=== PATIENT | female | born 1985 | race Caucasian/White ===

== ENCOUNTER → 2017-01-02 | Outpatient (CLI) | payer SELFPAY ==
--- NOTE | 2017-01-02 15:01 | RADIOLOGY REPORT (SQ) ---
EXAM DESCRIPTION: U/S [id number] TRNABD 1GES W/ODOP COMPLETED DATE/TIME: 01/02/2017 2:03 pm REASON FOR STUDY: ENCOUNTER FOR SUPERVISION OF OTHER NORMAL (Z34.81) FIRST TRIMESTE Z34.81 ENCOUNTER FOR SUPRVSN OF NORMAL , FIRST TRIM COMPARISON: None. TECHNIQUE: Transabdominal static and realtime grayscale images acquired of the pelvis. Additional se lected spectral and color Doppler images recorded. All images stored on PACs. bHCG: Not applicable. LIMITATIONS: None. FINDINGS: FETUS: Living intrauterine . EGA: 9 weeks 5 days NEIDA: 08/02/2017 FHR: 171 beats per minute. SUBCHORIONIC BLEED: No SIZE OF BLEED: Not applicable. UTERUS: 11.2 x 7.1 x 6.7 cm. No masses or anomalies. CERVICAL LENGTH: 4.2 cm. Closed. RIGHT ADNEXA: Right ovary measures 2.9 x 3.1 x 3.7 cm. Normal vascular flow. There is a 2.3 x 2.3 x 2.3 cm cyst. No adnexal free fluid. No adnexal masses. LEFT ADNEXA: Left ovary not seen. No adnexal free fluid. No adnexal masses. FREE FLUID: None. OTHER: No other significant finding. IMPRESSION: LIVING INTRAUTERINE . EGA 9 weeks 5 days. Trimester of : First - 0 to 13 weeks. TECHNICAL DOCUMENTATION: JOB ID: [id number] [employer]- All Rights Reserved
== END ==
LOC: RAD 12:53
PROVIDERS: ATTEND Nurse Practitioner Women's Health
DX: Z34.81 Encounter for supervision of other normal pregnancy, first trimester (principal)
CPT/HCPCS: 76801

== ENCOUNTER → 2017-03-14 | Outpatient (CLI) | payer SELFPAY ==
--- NOTE | 2017-03-14 17:01 | RADIOLOGY REPORT (SQ) ---
EXAM DESCRIPTION: U/S OB 14+ TRNABD 1GES W/O DOP COMPLETED DATE/TIME: 03/14/2017 4:40 pm REASON FOR STUDY: ENCOUNTER FOR SUPERVISION OF OTHER NORMAL , FIRST TRIMESTER Z34.82 ENCOU NTER FOR SUPRVSN OF NORMAL , SECOND TRI COMPARISON: 01/02/2017 TECHNIQUE: Static and Dynamic grayscale imaging performed of gravid uterus using transabdominal appr oach. Additional selected color Doppler and spectral images recorded. All stored on PACS. LIMITATIONS: None. FINDINGS: EGA: 20 weeks 1 day. NEIDA: 07/31/2017 ISRRAEL: 4.3 cm. Estimated weight: 331 g PLACENTA: Posterior in location. Grade 1 PRESENTATION: Variable. ANATOMY: HEART RATE: 153 beats per minute. FOUR CHAMBER HEART: Not visualized. THREE VESSEL CORD: Yes. CORD INSERTION: Visualized. KIDNEYS AND BLADDER: Visualized. Appear normal. STOMACH: Visualized. Appears normal. SPINE: Normal as visualized. BRAIN AND LATERAL VENTRICLES: Visualized. Appear normal. OTHER: No other significant finding. MATERNAL ADNEXA: Maternal ovaries not visualized. CERVICAL LENGTH: Not visualized. OTHER: No other significant finding. IMPRESSION: LIVING INTRAUTERINE . ESTIMATED GESTATIONAL AGE 20 WEEKS 1 DAY. NO VISUALIZED ANOMALIES. Trimester of : Second trimester - 13 weeks 1 day to 27 weeks 6 days. TECHNICAL DOCUMENTATION: JOB ID: [id number] [employer]- All Rights Reserved
== END ==
LOC: RAD 14:31
PROVIDERS: ATTEND Nurse Practitioner Women's Health
DX: Z34.82 Encounter for supervision of other normal pregnancy, second trimester (principal)
CPT/HCPCS: 76805

== ENCOUNTER → 2017-05-10 | Outpatient (CLI) | payer SELFPAY ==
--- NOTE | 2017-05-10 16:29 | RADIOLOGY REPORT (SQ) ---
EXAM DESCRIPTION: U/S OB 14+ TRNABD 1GES W/O DOP COMPLETED DATE/TIME: 05/10/2017 3:57 pm REASON FOR STUDY: Z34.83 ENCOUNTER FOR SUPRVSN OF NORMAL , THIRD TRIMESTER Z34.83 ENCOUNTE R FOR SUPRVSN OF NORMAL , THIRD TRIM COMPARISON: 03/14/2017. TECHNIQUE: Static and Dynamic grayscale imaging performed of gravid uterus using transabdominal appr oac. Additional selected color Doppler and spectral images recorded. All stored on PACS. LIMITATIONS: Limited visualization of the anatomy due to movement. FINDINGS: EGA: 27 week 1 day. NEIDA: 08/08/2017. EFW: 1030 g. grams PERCENTILE: 30%. ISRRAEL: Adequate amount. PLACENTA: Posterior. PRESENTATION: Transverse. ANATOMY: HEART RATE: 145 beats per minute. FOUR CHAMBER HEART: Visualized. THREE VESSEL CORD: Yes. CORD INSERTION: Visualized. KIDNEYS AND BLADDER: Not adequately visualized. STOMACH: Visualized. Appears normal. SPINE: Normal as visualized. BRAIN AND LATERAL VENTRICLES: Not adequately visualized. OTHER: No other significant finding. MATERNAL ADNEXA: Maternal ovaries not visualized. CERVICAL LENGTH: Not measured. Closed. OTHER: No other significant finding. IMPRESSION: LIVING INTRAUTERINE . ESTIMATED GESTATIONAL AGE 27 WEEK 1 DAY. NO VISUALIZED ANOMALIES. Trimester of : Second trimester - 13 weeks 1 day to 27 weeks 6 days. TECHNICAL DOCUMENTATION: JOB ID: [id number] [employer]- All Rights Reserved Reading location - IP/workstation name: [facility]-RR
== END ==
LOC: RAD 14:37
PROVIDERS: ATTEND Nurse Practitioner Women's Health
DX: Z34.82 Encounter for supervision of other normal pregnancy, second trimester (principal)
CPT/HCPCS: 76805

== ENCOUNTER 2017-07-19 15:24 | Outpatient (CLI) | payer MEDICAID | END 2017-07-19 16:13 | disposition home or self-care (01) | LOC: LC 15:24 | PROVIDERS: ATTEND Obstetrics & Gynecology | PROC: 4A1HXCZ Monitoring of Products of Conception, Cardiac Rate, External Approach (ICD-10-PCS; principal; 2017-07-19) | DX: Z34.93 Encounter for supervision of normal pregnancy, unspecified, third trimester (principal) | CPT/HCPCS: 59025 ==

== ENCOUNTER 2017-08-01 18:10 | Inpatient (IN) | payer MEDICAID ==
[2017-08-01 18:35] LABS: APPEARANCE,URINE CLEAR; BILIRUBIN,URINE NEGATIVE (NEGATIVE); COLOR,URINE YELLOW; GLUCOSE, URINE NEGATIVE (NEGATIVE); KETONES,URINE NEGATIVE (NEGATIVE); LEUKOCYTE ESTERASE,URINE NEGATIVE (NEGATIVE); NITRITE,URINE NEGATIVE (NEGATIVE); PROTEIN,URINE NEGATIVE (NEGATIVE); URINE SPECIFIC GRAVITY 1.008; UROBILINOGEN,URINE NEGATIVE mg/dL (<2.0)
[2017-08-01 18:47] LABS: ABSOLUTE EOSINOPHILS # (AUTO) 0.1 10^3/uL (0.0-0.6); ABSOLUTE LYMPHOCYTES (AUTO) 2.2 10^3/uL (0.5-4.7); ABSOLUTE NEUT (AUTO) 8.2 10^3/uL (1.7-8.2); BASOPHILS % (AUTO) 0.2 % (0-2); EOSINOPHILS % (AUTO) 0.7 % (0-6); HEMATOCRIT 34.5 % (36.0-47.0); HEMOGLOBIN 12.2 g/dL (12.0-15.5); MEAN CORPUSCULAR HEMOGLOBIN 33.7 pg (27.0-33.4); MEAN CORPUSCULAR HGB CONC 35.4 g/dL (32.0-36.0); MEAN CORPUSCULAR VOLUME 95 fl (80-97); MONOCYTES % (AUTO) 8.6 % (3-13); PLATELET COUNT 200 10^3/uL (150-450); RED BLOOD COUNT 3.64 10^6/uL (3.72-5.28); RED CELL DISTRIBUTION WIDTH 13.9 % (11.5-14.0); SEGMENTED NEUTROPHILS % (AUTO) 71.5 % (42-78); TOTAL CELLS COUNTED % (AUTO) 100 %; WHITE BLOOD COUNT 11.4 10^3/uL (4.0-10.5)
[2017-08-01 18:50] LABS: URINE AMPHETAMINES SCREEN NEGATIVE; URINE BARBITURATES SCREEN NEGATIVE; URINE BENZODIAZEPINES SCREEN NEGATIVE; URINE COCAINE SCREEN NEGATIVE; URINE MARIJUANA (THC) SCREEN NEGATIVE; URINE METHADONE SCREEN NEGATIVE; URINE PHENCYCLIDINE SCREEN NEGATIVE
[2017-08-01] MEDS ORDERED: DINOPROSTONE 10 MG VAGINAL INSERT.SR PV PRN (19:34)
[2017-08-01] MEDS ORDERED: DINOPROSTONE 10 MG VAGINAL INSERT.SR ONE (19:41)
[2017-08-01] MEDS: RINGERS SOLUTION,LACTATED 1,000 ML IV PRN ×2 (19:51→19:52)
[2017-08-02] MEDS ORDERED: MISOPROSTOL 0.1 MG TABLET ONE ×3 (09:07→18:09)
--- NOTE | 2017-08-02 09:13 | Admission Physical ---
Datetime Report Generated by CPN: 08/02/2017 09:12 CURRENT ADMISSION Chief Complaint: Scheduled Induction of Labor Indication for Induction: Post Dates; Maternal Diabetes Admit Impression : Term, Intrauterine ; No Active Labor; Induction of Labor Admit Plan: Admit to Unit; Initiate Labor Induction Protocol ALLERGIES Medication Allergies: No Medication Allergies: No Known Allergies (07/19/2017) Latex: No Latex Allergies Food Allergies: N/A Environmental Allergies: N/A OBSTETRICAL HISTORY EDC: 07/29/2017 00:00 : 4 Para: 1 Term: 1 : 0 SAB: 0 IAB: 2 Livin Gestational Diabetes: Yes Rh Sensitization: No Incompetent Cervix: No ZUHAIR: No Infertility: No ART Treatment: No Uterine Anomaly: No IUGR: No Hx Previous C/S: No Macrosomia: No Hx Loss/Stillborn: No PIH: No Hx : No Placenta Previa/Abruption: No Depression/PP Depression: No PTL/PROM: No Post Hemorrhage: No Current Procedures: Ultrasound; NST Obstetrical History Comments: G1 - 2005 - EAB, 6 weeks G2 - 2006/ - , Girl at 40 weeks G3 - 2009 - EAB, 9 weeks G4 - Current SEE RECORDS Alcohol: No Marijuana : No Cocaine: No Other Illicit Drugs: No Cigarettes: Former Smoker. [id number] MEDICAL HISTORY Diabetes: Yes Diabetes Type: Gestational Diabetes Blood Transfusion: No Pulmonary Disease (Asthma, TB): No Breast Disease: No Hypertension: No Regional Trainer Surgery: No Heart Disease: No Hosp/Surgery: No Autoimmune Disorder: No Anesthetic Complications: No Kidney Disease: No Abnormal Pap Smear: No Neuro/Epilepsy: No Psychiatric Disorders: No Other Medical Diseases: No Hepatitis/Liver Disease: No Significant Family History: No Varicosities/Phlebitis: No Trauma/Violence : No Thyroid Dysfunction: No INFECTIOUS HISTORY Gonorrhea: No Genital Herpes: No Chlamydia: No Tuberculosis: No Syphilis: No Hepatitis: No HIV/AIDS Exposure: No Rash or Viral Illness: No HPV: No PHYSICAL EXAM General: Normal HEENT: Normal Neurologic: Normal Thyroid: Normal Heart: Normal Lungs: Normal Breast: Normal Back: Normal Abdomen: Normal Genitourinary Exam: Normal Extremities: Normal DTRs: Normal Pelvic Type: Adequate Vital Signs: Reviewed; Within Normal Limits VAGINAL EXAM Dilatation: 2 Effacement: 25 Station: -3 MEMBRANES Pooling: Negative Membranes: Intact FETUS A EGA: 40.4 Monitoring: External US FHR- Baseline: 135 Variability: Moderate 6-25bpm Accelerations: 15X15 Decelerations: None FHR Category: Category I Estimated Weight (gm): 3600 Presentation: Vertex PLANS FOR LABOR AND DELIVERY Labor and Delivery: None Pain Management: Epidural Feeding Preference: Breast Benefit of Breast Feed Discussed: Yes Circumcision: N/A INFORMED CONSENT Signature: with User ID: [email or web address]
[2017-08-02] MEDS ORDERED: MISOPROSTOL 0.2 MG TABLET PO ONE (09:23)
[2017-08-02] MEDS ORDERED: MISOPROSTOL 0.2 MG TABLET PV ONE (09:24)
[2017-08-02] MEDS ORDERED: PROMETHAZINE HCL INJ 25 MG/1 ML VIAL ONE ×2 (19:34→19:35)
[2017-08-02] MEDS ORDERED: NALBUPHINE HCL INJ 10 MG/1 ML AMPULE ONE (19:34)
[2017-08-02] MEDS ORDERED: PROMETHAZINE HCL INJ 25 MG/1 ML VIAL IV ONE (19:40)
[2017-08-02] MEDS ORDERED: NALBUPHINE HCL INJ 10 MG/1 ML AMPULE INJ ONE (19:40)
[2017-08-02] MEDS ORDERED: EPHEDRINE SULFATE INJ 50 MG/1 ML AMPULE ONE (20:59)
[2017-08-02] MEDS ORDERED: FENTANYL/BUPIVACAINE/NS/PF 300 MCG/150 ML RTUINJ EPI ONE (21:00)
[2017-08-02] MEDS ORDERED: BUPIVACAINE HCL 0.25 % INJ/PF (2.5 MG/1 ML) 30 ML VIAL ONE (21:00)
[2017-08-02] MEDS ORDERED: LIDOCAINE 1.5%/EPINEPHRINE INJ-PF 30 ML SDV ONE (21:00)
[2017-08-02] MEDS ORDERED: MISOPROSTOL 0.2 MG TABLET ONE (22:08)
[2017-08-02] MEDS ORDERED: LIDOCAINE 1% INJ-PF (10 MG/ML) 30 ML SDV ONE (22:08)
[2017-08-02] MEDS ORDERED: OXYTOCIN/NORMAL SALINE 20 UNIT/1,000 ML RTUINJ ONE (22:08)
[2017-08-02] MEDS ORDERED: DIPH/PERTUSS(ACELL)/TETANUS VAC/PF 0.5 ML SYR (>=10YO) IM PRN (22:34)
[2017-08-02] MEDS ORDERED: NA PHOS,M-B/NA PHOS,DI-BA (ADULT) 133 ML ENEMA PR PRN (22:34)
[2017-08-02] MEDS ORDERED: OXYTOCIN/NORMAL SALINE 20 UNIT/1,000 ML RTUINJ IV PRN (22:34)
[2017-08-02] MEDS ORDERED: PSEUDOEPHEDRINE HCL 30 MG TABLET PO PRN (22:34)
[2017-08-02] MEDS ORDERED: MAGNESIUM HYDROXIDE SUSP 30 ML UDCUP PO PRN (22:34)
[2017-08-02] MEDS ORDERED: PROMETHAZINE HCL 25 MG TABLET PO PRN (22:34)
[2017-08-02] MEDS ORDERED: DIBUCAINE 1% OINTMENT 28 GM TP PRN (22:34)
[2017-08-02] MEDS ORDERED: PROMETHAZINE HCL 25 MG SUPP.RECT PR PRN (22:34)
[2017-08-02] MEDS ORDERED: ACETAMINOPHEN 650 MG SUPP.RECT PR PRN (22:34)
[2017-08-02] MEDS ORDERED: BENZOCAINE/MENTHOL AEROSOL SPRAY 56 ML TOP PRN (22:34)
[2017-08-02] MEDS ORDERED: GLYCERIN/WITCH HAZEL LEAF 1 EACH MED..PAD TP PRN (22:34)
[2017-08-02] MEDS ORDERED: MEASLES,MUMPS&RUBELLA VACC/PF 0.5 ML VIAL SUBCUT PRN (22:34)
[2017-08-02] MEDS ORDERED: ZOLPIDEM TARTRATE 5 MG TABLET PO PRN (22:34)
[2017-08-02] MEDS ORDERED: PROMETHAZINE HCL INJ 25 MG/1 ML VIAL IV PRN (22:34)
[2017-08-02] MEDS ORDERED: DIPHENHYDRAMINE HCL 25 MG CAPSULE PO PRN (22:34)
[2017-08-03] MEDS: IBUPROFEN 800 MG TABLET PO SCH ×3 (05:13→21:48)
[2017-08-03] MEDS: ACETAMINOPHEN WITH CODEINE #3 TABLET PO PRN ×4 (06:26→22:45)
[2017-08-03 08:13] LABS: HEMATOCRIT 31.9 % (36.0-47.0); HEMOGLOBIN 11.5 g/dL (12.0-15.5); MEAN CORPUSCULAR HEMOGLOBIN 34.2 pg (27.0-33.4); MEAN CORPUSCULAR VOLUME 95 fl (80-97); PLATELET COUNT 157 10^3/uL (150-450); RED BLOOD COUNT 3.36 10^6/uL (3.72-5.28); WHITE BLOOD COUNT 15.9 10^3/uL (4.0-10.5)
[2017-08-03] MEDS: FAMOTIDINE 20 MG TABLET PO SCH ×2 (09:22→21:48)
[2017-08-03] MEDS: FERROUS SULFATE 325 MG TABLET PO SCH ×2 (09:22→17:36)
[2017-08-03] MEDS: PRENATAL VITAMIN W DHA CAPSULE PO SCH (09:22)
[2017-08-03] MEDS: SENNOSIDES/DOCUSATE 8.6-50 MG 1 EACH TABLET PO SCH (09:23)
[2017-08-03] MEDS: DOCUSATE SODIUM 100 MG CAPSULE PO SCH ×2 (09:23→17:36)
[2017-08-03] MEDS ORDERED: DOXYLAMINE SUCCINATE PO SCH (10:00)
[2017-08-03] MEDS ORDERED: (PENDING PHARMACY ID) (Prenatal No122/Iron/Folic Acid [Prenatal Multi Tablet] 1 EACH) PO SCH (10:00)
[2017-08-03] MEDS ORDERED: VIT B6 PO SCH (10:00)
--- NOTE | 2017-08-03 14:23 | PDOC PROGRESS REPORT ---
Subjective-OB Progress Note for:: 08/03/17 Subjective: reports breast and bottle feeding, tolerating diet, bleeding slowing, pain controlled with current meds. Physical Exam (OB) Vital Signs: Temp Pulse Resp BP Pulse Ox 97.4 F 62 16 122/79 100 08/03/17 07:34 08/03/17 07:34 08/03/17 07:34 08/03/17 07:34 08/03/17 07:34 Intake & Output 08/02/17 08/03/17 08/04/17 06:59 06:59 06:59 Weight 93.7 kg - PIH/Pre-Eclampsia Clonus: Negative - Abdomen Description: Tender, Soft Hernia Present: No Fundal Description: Firm, Midline Fundal Height: u/u - u/2 - Extremities Lower extremities: Shad's sign - neg Calf: Normal, Nontender Objective-Diagnostic Laboratory: 08/03/17 07:06 08/03/17 07:06 WBC 15.9 H RBC 3.36 L Hgb 11.5 L Hct 31.9 L MCV 95 MCH 34.2 H MCHC 36.0 RDW 14.0 Plt Count 157 Assessment and Plan(PN) - Assessment and Plan (1) Normal vaginal delivery Is this a current diagnosis for this admission?: Yes - Time Spent with Patient Time with patient: Less than 15 minutes - Disposition Anticipated Discharge: Home Within: within 24 hours
[2017-08-04] MEDS: ACETAMINOPHEN WITH CODEINE #3 TABLET PO PRN (03:49)
[2017-08-04] MEDS: IBUPROFEN 800 MG TABLET PO SCH (06:46)
[2017-08-04 08:12] VITALS: BP 114/64
--- NOTE | 2017-08-04 09:03 | PDOC DISCHARGE SUMMARY ---
Final Diagnosis Discharge Date: 08/04/17 - Final Diagnosis (1) Normal vaginal delivery Is this a current diagnosis for this admission?: Yes Discharge Data - Discharge Medication Prescriptions: Acetaminophen with Codeine [Tylenol #3 Tablet] 1 each PO Q4HP PRN #20 tablet PRN Reason: Ibuprofen [Motrin 800 mg Tablet] 800 mg PO Q8 #90 tablet Vit No.126/Iron/Folic [Classic Tablet] 1 each PO DAILY #30 tablet Home Medications: No122/Iron/Folic Acid [ Multi Tablet] 1 each PO DAILY 08/01/17 Acetaminophen with Codeine [Tylenol #3 Tablet] 1 each PO Q4HP PRN #20 tablet 04/22 Ibuprofen [Motrin 800 mg Tablet] 800 mg PO Q8 #90 tablet 08/04/17 Vit No.126/Iron/Folic [Classic Tablet] 1 each PO DAILY #30 tablet 08/04/17 Procedures: NST Intrapartum Procedure(s): Spontaneous Vaginal Delivery - Diagnosis Test Laboratory: Temp Pulse Resp BP Pulse Ox 98.3 F 63 16 114/64 98 08/04/17 07:45 08/04/17 07:45 08/04/17 07:45 08/04/17 07:45 08/04/17 07:45 08/01/17 08/01/17 08/03/17 18:20 18:30 07:06 RBC 3.64 L 3.36 L Hgb 12.2 11.5 L Hct 34.5 L 31.9 L Urine Opiates Screen NEGATIVE - Discharge information/Instructions Discharge Activity: Balance Activity w/Rest, Pelvic Rest Discharge Diet: Regular Disposition: HOME, SELF-CARE Follow up with: [facility] in: 4, Weeks
[2017-08-04] MEDS: PRENATAL VITAMIN W DHA CAPSULE PO SCH (09:25)
[2017-08-04] MEDS: FAMOTIDINE 20 MG TABLET PO SCH (09:25)
[2017-08-04] MEDS: FERROUS SULFATE 325 MG TABLET PO SCH (09:26)
[2017-08-04] MEDS: DOCUSATE SODIUM 100 MG CAPSULE PO SCH (09:26)
[2017-08-04] MEDS: SENNOSIDES/DOCUSATE 8.6-50 MG 1 EACH TABLET PO SCH (09:26)
--- NOTE | 2017-08-14 09:55 | Delivery Summary ---
Del Sum A-C Datetime Report Generated by CPN: 08/14/2017 09:54 DELIVERY PERSONNEL DELIVERY PERSONNEL: [id number] Delivery Doctor:: Denia Farias MD Anesthesiologist:: Tushar Wan MD Labor and Delivery Nurse:: Sangita Ochoa RNhydroelectric plant mechanical engineer Nurse:: Nay Rosado RN Nursery Nurse:: Cherry Sibley RN Nursery Nurse:: Ruth Ann Walters RN Roll Clamp Operator/MANAGER DOCUMENT CONTROL: Martitakeith Thompson, LABORER LIVESTOCK MATERNAL INFORMATION Delivery Anesthesia: Epidural Medications After Delivery: Pitocin Bolus-Please Comment; Pitocin Drip 20 Units/1000ml NSS Estimated Blood Loss (ml): 200 Maternal Complications: None LABOR SUMMARY EDC: 07/29/2017 00:00 No. Babies in Womb: 1 Attempted: No Labor Anesthesia: Epidural LABOR INFORMATION Reason for Induction: Maternal Diabetes Onset of Labor: 08/02/2017 20:43 Complete Dilatation: 08/02/2017 22:13 Cervical Ripening Agents: Cervidil; Cytotec @ Cervical Ripening Agents: Cervidil; Cytotec @ Cervical Ripening Agents: Cytotec @ 50 Cervical Ripening Agents: Cytotec @ 25 Cervical Ripening Agents: Cytotec @ 50 Cervical Ripening Agents: Cytotec @ 25 Cervical Ripening Agents: Cytotec @ 50 Cervical Ripening Agents: Cervidil Oxytocin: N/A Group B Beta Strep: Negative Antibiotics # of Doses: 0 Steroids Given: None Steroids Given: None Reason Steroids Not Administered: Not Applicable Reason Steroids Not Administered: Not Applicable MEMBRANES Membranes Rupture Method: Artificial Rupture of Membranes: 08/02/2017 22:19 Length of Rupture (hr): 0.00 Amniotic Fluid Color: Moderate Meconium Amniotic Fluid Amount: Small Amniotic Fluid Odor: Normal STAGES OF LABOR Stage 1 hr: 1 Stage 1 min: 30 Stage 2 hr: 0 Stage 2 min: 6 Stage 3 hr: 0 Stage 3 min: 4 Total Time in Labor hr: 1 Total Time in Labor min: 40 VAGINAL DELIVERY Episiotomy: None Laceration #1: Vaginal Laceration #1: Vaginal Laceration Extension #1: Second Degree Laceration Repair: Yes Laceration Repair Note: 3-0 chromic figure of 8s Sponge Count Correct: Yes CSECTION DELIVERY Primary Indication: N/A Secondary Indication: N/A CSection Incidence: N/A Labor: N/A Elective: N/A CSection Incision: N/A BABY A INFORMATION Infant Delivery Date/Time: 08/02/2017 22:19 Method of Delivery: Vaginal Born in Route : No : N/A Forceps: N/A Vacuum Extraction: N/A Shoulder Dystocia : No PRESENTATION/POSITION BABY A Presentation: Cephalic Cephalic Presentation: Vertex Breech Presentation: N/A PLACENTA INFORMATION BABY A Placenta Delivery Time : 08/02/2017 22:23 Placenta Method of Delivery: Spontaneous Placenta Status: Delivered SCORES BABY A Heart Rate 1 min: >100 bpm Resp Effort 1 min: Good Cry Reflex Irritability 1 min: Cough or Sneeze or Pulls Away Muscle Tone 1 min: Some Flexion of Extremities Color 1 min: Blue/Pale Resuscitation Effort 1 min: Tactile Stimulation SCORE 1 MIN: 7 Heart Rate 5 min: >100 bpm Resp Effort 5 min: Good Cry Reflex Irritability 5 min: Cough or Sneeze or Pulls Away Muscle Tone 5 min: Active Motion Color 5 min: Body [place], Extremities Blue Resuscitation Effort 5 min: Tactile Stimulation SCORE 5 MIN: 9 INFORMATION BABY A Gestational Age at Delivery: 40.4 Gestational Status: Full Term- 39- 40.6 Weeks Outcome : Liveborn Condition : Stable Sex: Female IDENTIFICATION BABY A Verification Date/Time: 08/02/2017 22:27 ID Band Number: [id number] Mother's Name Verified: Yes RN Verifying : S. Marrytibstanir, RNC _ MSheela Bazzi, RN WEIGHT/LENGTH BABY A Infant Birthweight (gm): 3390 Weight (lb): 7 Infant Weight (oz): 8 Infant Length (in): 20.00 Length (cm): 50.80 CORD INFORMATION BABY A No. Cord Vessels: 3 Nuchal Cord : N/A Cord Blood Taken: Yes-For Eval (Mom's Blood Type - or O+) Suction: Mouth; Nose BABY B INFORMATION : N/A SIGNATURES Signature: with User ID: [email or web address]
== END 2017-08-04 10:55 | disposition home or self-care (01) | DRG 775 ==
LOC: LR 18:10 → 2S 08-03 00:46
PROVIDERS: ADMIT Obstetrics & Gynecology Gynecology; ATTEND Obstetrics & Gynecology Gynecology
PROC: 4A1HXCZ Monitoring of Products of Conception, Cardiac Rate, External Approach (ICD-10-PCS; 2017-08-01)
PROC: 10E0XZZ Delivery of Products of Conception, External Approach (ICD-10-PCS; principal; 2017-08-02)
PROC: 0KQM0ZZ Repair Perineum Muscle, Open Approach (ICD-10-PCS; 2017-08-02)
PROC: 3E0P7VZ Introduction of Hormone into Female Reproductive, Via Natural or Artificial Opening (ICD-10-PCS; 2017-08-02)
PROC: 10907ZC Drainage of Amniotic Fluid, Therapeutic from Products of Conception, Via Natural or Artificial Opening (ICD-10-PCS; 2017-08-02)
DX: O24.429 Gestational diabetes mellitus in childbirth, unspecified control (principal); O48.0 Post-term pregnancy; O77.0 Labor and delivery complicated by meconium in amniotic fluid; O70.1 Second degree perineal laceration during delivery; Z87.891 Personal history of nicotine dependence; Z3A.40 40 weeks gestation of pregnancy; Z37.0 Single live birth
CPT/HCPCS: 36415; 80307; 81005; 82962; 85025; 85027; 86592; 86850; 86900; 86901; 94760; J2300; J2550; J2590; J3010; J3490